=== PATIENT | female | born 1960 | race American Indian/Alaskan Native ===

== ENCOUNTER 2016-12-24 23:09 | Emergency (ER) | payer MEDICAID ==
[2016-12-25 00:41] VITALS: BP 175/109
[2016-12-25 01:28] LABS: Basophils % (Auto) 1.1 % (0.0-1.8); Eosinophils % (Auto) 3.5 % (0.0-4.3); Hemoglobin 12.6 gm/dl (10.1-14.3); Mean Corpuscular HGB Conc 32 % (30-34); Mean Corpuscular Volume 80 fl (79-97); Platelet Count 234 K/mm3 (140-440); Red Blood Count 4.85 M/mm3 (3.65-5.03); Red Cell Distribution Width 15.5 % (13.2-15.2)
[2016-12-25 01:31] LABS: Anion Gap 13 mmol/L; BUN/Creatinine Ratio 25.71; Blood Urea Nitrogen 18 mg/dL (7-17); Calcium 9.4 mg/dL (8.4-10.2); Carbon Dioxide 28 mmol/L (22-30); Chloride 101.3 mmol/L (98-107); Glucose 96 mg/dL (65-100); Potassium 3.7 mmol/L (3.6-5.0); Sodium 139 mmol/L (137-145)
[2016-12-25 01:42] LABS: Mean Corpuscular Hemoglobin 26 pg (28-32)
[2016-12-25 02:45] LABS: Bilirubin,Urine NEG (Negative); Blood,Urine SM (Negative); Ketones,Urine NEG (Negative); Leukocyte Esterase,Urine SM (Negative); Nitrite,Urine NEG (Negative); Protein,Urine <15 mg/dL mg/dL (Negative); Urobilinogen,Urine < 2.0 mg/dL (<2.0)
--- NOTE | 2016-12-27 00:31 | ED Elopement Review ---
ED Pt Elopement review - Results review Lab results: Laboratory Tests 12/25/16 12/25/16 12/25/16 00:57 00:57 03:52 WBC 8.0 RBC 4.85 Hgb 12.6 Hct 39.0 MCV 80 MCH 26 L MCHC 32 RDW 15.5 H Plt Count 234 Lymph % (Auto) 30.1 [place] % (Auto) 8.8 H Eos % (Auto) 3.5 Baso % (Auto) 1.1 Lymph # 2.4 [place] # 0.7 Eos # 0.3 Baso # 0.1 Seg Neutrophils % 56.5 Seg Neutrophils # 4.5 Sodium 139 Potassium 3.7 Chloride 101.3 Carbon Dioxide 28 Anion Gap 13 BUN 18 H Creatinine 0.7 Estimated GFR > 60 BUN/Creatinine Ratio 25.71 Glucose 96 Calcium 9.4 Troponin T < 0.010 < 0.010 Urine Color Urine Turbidity Urine pH Ur Specific [place] Urine Protein Urine Glucose (UA) Urine Ketones Urine Blood Urine Nitrite Urine Bilirubin Urine Urobilinogen Ur Leukocyte Esterase Urine WBC (Auto) Urine RBC (Auto) U Epithel Cells (Auto) 12/25/16 Unknown WBC RBC Hgb Hct MCV MCH MCHC RDW Plt Count Lymph % (Auto) [place] % (Auto) Eos % (Auto) Baso % (Auto) Lymph # [place] # Eos # Baso # Seg Neutrophils % Seg Neutrophils # Sodium Potassium Chloride Carbon Dioxide Anion Gap BUN Creatinine Estimated GFR BUN/Creatinine Ratio Glucose Calcium Troponin T Urine Color Yellow Urine Turbidity Clear Urine pH 6.0 Ur Specific [place] 1.018 Urine Protein <15 mg/dl Urine Glucose (UA) Neg Urine Ketones Neg Urine Blood Sm Urine Nitrite Neg Urine Bilirubin Neg Urine Urobilinogen < 2.0 Ur Leukocyte Esterase Sm Urine WBC (Auto) 4.0 Urine RBC (Auto) 2.0 U Epithel Cells (Auto) 1.0 - Call Back decision Pt Call Back Decision: No action required
== END 2016-12-25 00:32 | disposition left against medical advice (07) ==
LOC: ED 23:09
DX: R06.09 Other forms of dyspnea (principal); R60.0 Localized edema; Z53.21 Procedure and treatment not carried out due to patient leaving prior to being seen by health care provider
CPT/HCPCS: 36415; 80048; 81001; 84484; 85025; 93005; 93010

== ENCOUNTER 2019-02-13 08:07 | Emergency (ER) | payer MEDICAID ==
[2019-02-13 08:15] VITALS: BP 139/82
[2019-02-13 08:35] LABS: Basophils # (Auto) 0.1 K/mm3 (0.0-0.1); Eosinophils # (Auto) 0.2 K/mm3 (0.0-0.4); Eosinophils % (Auto) 2.7 % (0.0-4.3); Hematocrit 40.7 % (30.3-42.9); Hemoglobin 13.5 gm/dl (10.1-14.3); Lymphocytes # (Auto) 1.9 K/mm3 (1.2-5.4); Mean Corpuscular HGB Conc 33 % (30-34); Mean Corpuscular Volume 80 fl (79-97); Monocytes # (Auto) 0.8 K/mm3 (0.0-0.8); Monocytes % (Auto) 13.5 % (0.0-7.3); Platelet Count 278 K/mm3 (140-440); Red Blood Count 5.08 M/mm3 (3.65-5.03); Red Cell Distribution Width 15.1 % (13.2-15.2)
[2019-02-13 08:48] LABS: Alanine Aminotransferase 25 units/L (7-56); BUN/Creatinine Ratio 7; Blood Urea Nitrogen 5 mg/dL (7-17); Calcium 9.2 mg/dL (8.4-10.2); Hemolysis Index 10
--- NOTE | 2019-02-13 08:59 | Emergency Department Report ---
HPI - General Chief Complaint: Abdominal Pain Time Seen by Provider: 02/13/19 08:29 - HPI HPI: 59-year-old -[place] female presents to the emergency department with complaint of some generalized abdominal pain, worse on the right side, that has been going on for the past 3 days. She denies any nausea, vomiting discharge, vaginal bleeding, dysuria, fever but does have a decreased appetite. Her primary care physician is Dr. Cruz Garza. No recent travel or sick contacts at home. She has a past medical history of hypertension. No known aggravating or alleviating factors. ED Past Medical Hx - Past Medical History Hx Hypertension: Yes Hx CVA: No Hx Congestive Heart Failure: No Hx Diabetes: No Hx Arthritis: Yes ([facility] arthritis) Hx Seizures: No Hx Asthma: No Hx COPD: No - Surgical History Hx Pacemaker: No - Social History Smoking Status: Never Smoker Substance Use Type: None - Medications Home Medications: Home Medications Medication Instructions Recorded Confirmed Last Taken Type Spironolactone [Aldactone] 25 mg PO DAILY 07/19/13 09/29/14 07/19/13 09:00 History amLODIPine [Norvasc] 5 mg PO DAILY #30 tab 09/29/14 Unknown Rx HYDROcodone/APAP 5-325 [[place] 1 each PO Q6HR PRN #10 tablet 02/13/19 Unknown Rx 5/325] ED Review of Systems ROS: Stated complaint: ABD PAIN Other details as noted in HPI Comment: All other systems reviewed and negative Constitutional: denies: chills, fever Eyes: denies: eye pain, vision change ENT: denies: ear pain, throat pain Respiratory: denies: cough, shortness of breath Cardiovascular: denies: chest pain, palpitations Gastrointestinal: abdominal pain. denies: nausea, vomiting Genitourinary: denies: dysuria, discharge Musculoskeletal: denies: back pain, arthralgia Skin: denies: rash, lesions Neurological: denies: headache, weakness Physical Exam - Physical Exam Vital Signs: Vital Signs 02/13/19 08:13 Temperature 98 F Pulse Rate 93 H Respiratory 20 Rate Blood Pressure 139/82 O2 Sat by Pulse 99 Oximetry Physical Exam: GENERAL: The patient is well-developed well-nourished. HENT: Normocephalic. Atraumatic. Patient has moist mucous membranes. EYES: Extraocular motions are intact. NECK: Supple. Trachea is midline. CHEST/LUNGS: Clear to auscultation. There is no respiratory distress noted. HEART/CARDIOVASCULAR: Regular. There is no tachycardia. There is no murmur. ABDOMEN: Abdomen is soft. Right-sided abdominal tenderness to palpation. No guarding. Patient has normal bowel sounds. There is no abdominal distention. SKIN: Skin is warm and dry. NEURO: The patient is awake, alert, and oriented. The patient is cooperative. The patient has no focal neurologic deficits. The patient has normal speech. MUSCULOSKELETAL: There is no tenderness or deformity. There is no evidence of acute injury. ED Course Vital Signs 02/13/19 08:13 Temperature 98 F Pulse Rate 93 H Respiratory 20 Rate Blood Pressure 139/82 O2 Sat by Pulse 99 Oximetry ED Medical Decision Making - Lab Data Result diagrams: 02/13/19 08:20 02/13/19 08:20 - Radiology Data Radiology results: report reviewed CT ABDOMEN AND PELVIS WITH CONTRAST HISTORY: right sided abdominal pain x 3 days COMPARISON: None. TECHNIQUE: Axial CT images were obtained through the abdomen and pelvis after 100 cc of Omnipaque 300 intravenously. Sagittal and coronal reformatted images. All CT scans at this location are performed using CT dose reduction for ALARA by means of automated exposure control. FINDINGS: CT ABDOMEN: Lung Bases: Clear. Liver: No significant abnormality. Biliary: There are multiple partially calcified gallstones in the gallbladder. No abnormal dilatation or inflammation. Spleen: No significant abnormality. Unenlarged. Pancreas: No significant abnormality. Adrenals: No significant abnormality. Kidneys: No significant abnormality. 1 cm left renal cyst is noted. Lymphatics: No lymphadenopathy. Vasculature: No significant abnormality. Bowel/Peritoneum: No significant abnormality. No free air. No free fluid. Normal appendix. CT PELVIS: : The uterus is enlarged and lobular and contains multiple fibroids. Fibroids range from 1 cm-5 cm in diameter. One of the fibroids demonstrates calcific degeneration. One of the fibroids demonstrates cystic degeneration. No adnexal abnormality is appreciated. Osseous Structures: No significant abnormality. Additional Findings: None IMPRESSION: Cholelithiasis. No findings to suggest acute cholecystitis. Uterine fibroid disease. - Medical Decision Making This patient presents with a three-day history of some abdominal pain that appears worse on the right side. On physical examination her pain is only on the right side. Labs have been unremarkable according CBC, metabolic panel, lipase and urinalysis. CT scan of the abdomen and pelvis with IV contrast shows cholelithiasis without cholecystitis and uterine fibroid disease. This very w ell may be the etiology of the patient's symptoms. We discussed cholelithiasis, we discussed staying away from greasy and fatty foods and alcohol. She'll be given a prescription for a small amount of pain medication. She has been given a referral for a local general surgeon to establish care regarding the cholelithiasis. She will return to the ER with any worsening of her symptoms or any acute distress. Vital signs stable throughout her ED course. - Differential Diagnosis cholelithiasis, cholecystitis, appendicitis, pancreatitis Critical Care Time: No Critical care attestation.: If time is entered above; I have spent that time in minutes in the direct care of this critically ill patient, excluding procedure time. ED Disposition Clinical Impression: Cholelithiasis Qualifiers: Cholelithiasis location: gallbladder Cholecystitis presence: without cholecystitis Biliary obstruction: without biliary obstruction Qualified Code(s): K80.20 - Calculus of gallbladder without cholecystitis without obstruction Abdominal pain Qualifiers: Abdominal location: unspecified location Qualified Code(s): R10.9 - Unspecified abdominal pain Disposition: TO HOME OR SELFCARE Is pt being admited?: No Condition: Stable Instructions: Biliary Colic (ED), Abdominal Pain (ED) Additional Instructions: Please try and avoid foods that are fatty, greasy, spicy, and avoid alcohol. Follow up with a primary care physician. I am also giving you a referral for a local general surgeon, Dr. Cazares, to follow up regarding your gallstones to establish care. If this is something that continues to bother you, you may need to have the gallbladder taken out electively at some point in the future. However, you should return to the emergency department with any worsening of your symptoms, or with any acute distress. You have been prescribed a medication that is sedating and therefore should not be taken prior to driving, working, and responsible for children and in no way should be mixed with alcohol of any quantity. Prescriptions: HYDROcodone/APAP 5-325 [[place] 5/325] 1 each PO Q6HR PRN #10 tablet PRN Reason: Pain Referrals: MARIANELA CAZARES DO [Staff Physician] - 3-5 Days Time of Disposition: 10:00
[2019-02-13 09:21] LABS: Bacteria,Urine 1+ /HPF (Negative); Bilirubin,Urine NEG (Negative); Blood,Urine MOD (Negative); Color,Urine Yellow (Yellow); Mucus,Urine FEW /HPF; Protein,Urine <15 mg/dL mg/dL (Negative); Urobilinogen,Urine < 2.0 mg/dL (<2.0)
--- NOTE | 2019-02-13 10:26 | Cat Scan Report ---
CT ABDOMEN AND PELVIS WITH CONTRAST HISTORY: right sided abdominal pain x 3 days COMPARISON: None. TECHNIQUE: Axial CT images were obtained through the abdomen and pelvis after 100 cc of Omnipaque 300 intravenously. Sagittal and coronal reformatted images. All CT scans at this location are performed using CT dose reduction for ALARA by means of automated exposure control. FINDINGS: CT ABDOMEN: Lung Bases: Clear. Liver: No significant abnormality. Biliary: There are multiple partially calcified gallstones in the gallbladder. No abnormal dilatation or inflammation. Spleen: No significant abnormality. Unenlarged. Pancreas: No significant abnormality. Adrenals: No significant abnormality. Kidneys: No significant abnormality. 1 cm left renal cyst is noted. Lymphatics: No lymphadenopathy. Vasculature: No significant abnormality. Bowel/Peritoneum: No significant abnormality. No free air. No free fluid. Normal appendix. CT PELVIS: : The uterus is enlarged and lobular and contains multiple fibroids. Fibroids range from 1 cm-5 cm in diameter. One of the fibroids demonstrates calcific degeneration. One of the fibroids demonstrates cystic degeneration. No adnexal abnormality is appreciated. Osseous Structures: No significant abnormality. Additional Findings: None IMPRESSION: Cholelithiasis. No findings to suggest acute cholecystitis. Uterine fibroid disease. Signer Name: Dillan Mcnally Jr, MD Signed: 02/13/2019 10:21 AM Workstation Name: [id number]
== END 2019-02-13 10:56 | disposition home or self-care (01) ==
LOC: ED 08:07
DX: K80.20 Calculus of gallbladder without cholecystitis without obstruction (principal); I10 Essential (primary) hypertension; M19.90 Unspecified osteoarthritis, unspecified site; Z79.899 Other long term (current) drug therapy; Z88.0 Allergy status to penicillin
CPT/HCPCS: 36415; 74177; 80053; 81001; 83690; 85025; 99284; Q9967

== ENCOUNTER 2019-04-25 21:50 | Emergency (ER) | payer MEDICAID ==
[2019-04-25 21:56] VITALS: BP 159/92
[2019-04-25 23:27] LABS: Basophils # (Auto) 0.1 K/mm3 (0.0-0.1); Basophils % (Auto) 1.1 % (0.0-1.8); Eosinophils # (Auto) 0.2 K/mm3 (0.0-0.4); Eosinophils % (Auto) 2.6 % (0.0-4.3); Hematocrit 40.3 % (30.3-42.9); Lymphocytes # (Auto) 2.2 K/mm3 (1.2-5.4); Lymphocytes % (Auto) 36.2 % (13.4-35.0); Mean Corpuscular HGB Conc 32 % (30-34); Mean Corpuscular Volume 81 fl (79-97); Monocytes # (Auto) 0.5 K/mm3 (0.0-0.8); Platelet Count 243 K/mm3 (140-440); Red Cell Distribution Width 15.5 % (13.2-15.2)
[2019-04-25 23:40] LABS: BUN/Creatinine Ratio 19; Blood Urea Nitrogen 13 mg/dL (7-17); Calcium 8.5 mg/dL (8.4-10.2); Hemolysis Index 8
--- NOTE | 2019-04-26 00:59 | Emergency Department Report ---
ED General Adult HPI - General Chief complaint: High BP Stated complaint: HIGH B/P Time Seen by Provider: 04/26/19 00:58 Source: patient Mode of arrival: Ambulatory Limitations: No Limitations - History of Present Illness Initial comments: Patient is a 59-year-old female that presents emergency room with complaints of headache and high blood pressure. Patient states her headache has resolved. Patient states her blood pressure was high due to eating a high salt fried meal. Patient states she is compliant with her medications. Patient states her h eadache was diffuse and a 4 out of 10. Patient states it was sharp. Patient states her headache now is resolved and is 0 out of 10. Patient states she feels her blood pressure has come down. Patient states her blood pressure at home was 170/90 -: Sudden Location: head Severity scale (0 -10): 0 Consistency: now resolved Improves with: rest, other Associated Symptoms: denies: confusion, chest pain, cough, diaphoresis, fever/chills, loss of appetite, malaise, nausea/vomiting, rash, seizure, shortness of breath, syncope, weakness Treatments Prior to Arrival: none - Related Data Home Medications Medication Instructions Recorded Confirmed Last Taken Spironolactone [Aldactone] 25 mg PO DAILY 07/19/13 09/29/14 07/19/13 09:00 Previous Rx's Medication Instructions Recorded Last Taken Type amLODIPine [Norvasc] 5 mg PO DAILY #30 tab 09/29/14 Unknown Rx HYDROcodone/APAP 5-325 [[place] 1 each PO Q6HR PRN #10 tablet 02/13/19 Unknown Rx 5/325] Allergies Allergy/AdvReac Type Severity Reaction Status Date / Time Penicillins Allergy Itching Verified 02/13/19 08:08 ED Review of Systems ROS: Stated complaint: HIGH B/P Other details as noted in HPI Constitutional: denies: chills, fever Eyes: denies: eye pain, eye discharge, vision change ENT: denies: ear pain, throat pain Respiratory: denies: cough, shortness of breath, wheezing Cardiovascular: denies: chest pain, palpitations Endocrine: no symptoms reported Gastrointestinal: denies: abdominal pain, nausea, diarrhea Genitourinary: denies: urgency, dysuria, discharge Musculoskeletal: denies: back pain, joint swelling, arthralgia Skin: denies: rash, lesions Neurological: headache. denies: weakness, paresthesias Psychiatric: denies: anxiety, depression Hematological/Lymphatic: denies: easy bleeding, easy bruising ED Past Medical Hx - Past Medical History Previous Medical History?: Yes Hx Hypertension: Yes Hx CVA: No Hx Congestive Heart Failure: No Hx Diabetes: No Hx Arthritis: Yes ([facility] arthritis) Hx Seizures: No Hx Asthma: No Hx COPD: No - Surgical History Past Surgical History?: No Hx Pacemaker: No - Family History Family history: no significant - Social History Smoking Status: Never Smoker Substance Use Type: None - Medications Home Medications: Home Medications Medication Instructions Recorded Confirmed Last Taken Type Spironolactone [Aldactone] 25 mg PO DAILY 07/19/13 09/29/14 07/19/13 09:00 History amLODIPine [Norvasc] 5 mg PO DAILY #30 tab 09/29/14 Unknown Rx HYDROcodone/APAP 5-325 [[place] 1 each PO Q6HR PRN #10 tablet 02/13/19 Unknown Rx 5/325] ED Physical Exam - General Limitations: No Limitations General appearance: alert, in no apparent distress - Head Head exam: Present: atraumatic, normocephalic - Eye Eye exam: Present: normal appearance, PERRL Pupils: Present: normal accommodation - ENT ENT exam: Present: mucous membranes moist - Neck Neck exam: Present: normal inspection - Respiratory Respiratory exam: Present: normal lung sounds bilaterally. Absent: respiratory distress, wheezes, rales - Cardiovascular Cardiovascular Exam: Present: regular rate, normal rhythm. Absent: systolic murmur, diastolic murmur, rubs, gallop - GI/Abdominal GI/Abdominal exam: Present: soft, normal bowel sounds - Extremities Exam Extremities exam: Present: normal inspection - Back Exam Back exam: Present: normal inspection - Neurological Exam Neurological exam: Present: alert, oriented X3 - Psychiatric Psychiatric exam: Present: normal affect, normal mood - Skin Skin exam: Present: warm, dry, intact, normal color. Absent: rash ED Course Vital Signs 04/25/19 21:54 Temperature 98.8 F Pulse Rate 98 H Respiratory 18 Rate Blood Pressure 159/92 O2 Sat by Pulse 98 Oximetry - Reevaluation(s) Reevaluation #1: I discussed all results with patient. I discussed plan of care with patient. Patient agrees with plan of care. Patient is stable for discharge. Patient will be discharged home. Patient given discharge instructions. Patient voiced understanding of discharge instructions. The nurse will repeat the blood pressure prior to discharge. 04/26/19 02:11 Reevaluation #2: Nurse went back to recheck the patient's blood pressure and abrasion below. Patient was guarding given discharge instructions verbally but did not wait to receive printed instructions. 04/26/19 02:37 ED Medical Decision Making - Lab Data Result diagrams: 04/25/19 23:04 04/25/19 23:04 - Medical Decision Making Patient is a 59-year-old female that presents emergency room for headache and elevated blood pressure. Patient had a resolved prior to initial evaluation. Patient's blood pressure improved. Patient has been eating a lot of salt foods per patient. Patient instructed to ER healthy diet. Patient given discharge instructions but eloped prior to a recheck of her blood pressure to be done and printed discharge instructions could be given to the patient. - Differential Diagnosis high blood pressure. Critical care attestation.: If time is entered above; I have spent that time in minutes in the direct care of this critically ill patient, excluding procedure time. ED Disposition Clinical Impression: Hypertension Qualifiers: Hypertension type: essential hypertension Qualified Code(s): I10 - Essential (primary) hypertension Disposition: ELOPED Is pt being admited?: No Does the pt Need Aspirin: No Condition: Stable Instructions: Heart Healthy Diet (ED), How to Take a Blood Pressure (ED), DASH Eating Plan (ED), Low Sodium Diet (ED), Hypertension (ED) Additional Instructions: Patient to follow-up with primary care in 2-3 days. . Patient to return to ER if condition worsens. Patient to rest. Patient to increase water. Patient monitor blood pressure at home and keep a blood pressure log. Patient's take Tylenol or ibuprofen when necessary for pain. Referrals: DEANDRE BASS MD [Primary Care Provider] - 2-3 Days Time of Disposition: 02:39
== END 2019-04-26 02:37 | disposition left against medical advice (07) ==
LOC: ED 21:50
DX: I10 Essential (primary) hypertension (principal); M19.90 Unspecified osteoarthritis, unspecified site; Z88.0 Allergy status to penicillin; Z79.899 Other long term (current) drug therapy
CPT/HCPCS: 36415; 80048; 85025; 99282

== ENCOUNTER 2021-11-07 14:56 | Emergency (ER) | payer MEDICAID | END 2021-11-08 12:34 | disposition left against medical advice (07) | LOC: ED 14:56 | DX: M79.604 Pain in right leg (principal); Z53.21 Procedure and treatment not carried out due to patient leaving prior to being seen by health care provider ==